=== PATIENT | male | born 1970 | race African-American/Black ===

== ENCOUNTER 2018-04-03 12:58 | Emergency (ER) | payer BC ==
[2018-04-03] MEDS ORDERED: Ondansetron ODT 4 MG TAB ONE (13:30)
[2018-04-03] MEDS ORDERED: Acetaminophen 500 MG TAB ONE (14:09)
== END 2018-04-03 13:38 | disposition home or self-care (01) ==
LOC: MADERS 12:58
DX: B34.9 Viral infection, unspecified (principal)
CPT/HCPCS: 99283; Q0162

== ENCOUNTER 2018-06-27 10:51 | Emergency (ER) | payer BC, OTHER ==
[~2018-06-27 10:51] MED LIST: Iopamidol 370 76% 100 ML VIAL ONE; Sodium Chloride 0.9% 1,000 ML BAG ONE
[2018-06-27] MEDS ORDERED: Morphine 4 MG/ML VIAL ONE (11:46)
[2018-06-27 11:48] LABS: #Basophils 0.1 thou/uL (0.0-0.2); #Eosinphils 0.1 thou/uL (0.0-0.7); #Lymphocytes 1.3 thou/uL (1.20-3.40); #Monocytes 0.3 thou/uL (0.11-0.59); #Neutrophils 4.5 thou/uL (1.40-6.50); %Basophils 1.3 % (0.0-1.0); %Eosinophils 1.4 % (0.0-10.0); %Lymphocytes 21.2 % (21.0-51.0); %Monocytes 5.1 % (0.0-10.0); %Neutrophils 71.1 % (42.0-75.0); Hemoglobin 13.4 g/dL (14.0-18.0); Mean Corpuscular HGB CONC 32.4 g/dL (32.0-36.0); Mean Corpuscular Hemoglobin 29.2 pg (27.0-31.0); Mean Corpuscular Volume 90.1 fL (78.0-98.0); Mean Platelet Volume 6.5 fL (7.4-10.4); Platelet Count 226 thou/uL (130-400); RBC Distribution Width 13.3 % (11.5-14.5); Red Blood Cell (RBC) Count 4.57 mill/uL (4.70-6.10); White Blood Cell (WBC) Count 6.3 thou/uL (4.8-10.8)
[2018-06-27 11:57] LABS: PTT 26.4 SEC (22.9-36.1); Prothrombin Time 13.2 SEC (12.0-14.7)
[2018-06-27 12:07] LABS: ALT (SGPT) 23 U/L (8-55); AST (SGOT) 22 U/L (5-34); Albumin 3.6 g/dL (3.5-5.0); Alkaline Phosphatase 60 U/L (40-150); Anion Gap 10 mmol/L (10-20); BUN (Urea Nitrogen) 13 mg/dL (8.9-20.6); Bilirubin, Total 0.5 mg/dL (0.2-1.2); Calc. Creatinine Clearance 0 mL/min (70-130); Calcium 8.8 mg/dL (7.8-10.44); Carbon Dioxide 25 mmol/L (22-29); Chloride 111 mmol/L (98-107); Estimated GFR-MDRD 85; Globulin 2.9 g/dL (2.4-3.5); Glucose 97 mg/dL (70-105); Lipase 80 U/L (8-78); Potassium 3.4 mmol/L (3.5-5.1); Protein, Total 6.5 g/dL (6.0-8.3); Sodium 143 mmol/L (136-145)
[2018-06-27 12:28] LABS: Bilirubin Negative (Negative); Blood, Urine Negative (Negative); Clarity Clear (Clear); Glucose, Urine (Dipstick) Negative (Negative); Leukocyte Negative (Negative); Nitrite Negative (Negative); Protein, Urine (Dipstick) Negative (Neg-Trace); Urobilinogen 0.2 mg/dL (0.2-1.0)
--- NOTE | 2018-06-27 13:20 | CT ---
CT CHEST AND ABDOMEN AND PELVIS WITH IV CONTRAST: CT THORACIC AND LUMBAR SPINE: INDICATIONS: Trauma to right chest and abdomen. Injury with pain. TECHNIQUE: Multiple axial tomograms obtained through the chest, abdomen, and pelvis, with IV enhancement, follow ing trauma protocol. FINDINGS: CHEST: The lungs are well aerated. There is no pneumothorax. Mild ground glass opacity in the post erior right mid and lower lung could represent mild atelectasis. No evidence of rib fracture identified. The bony thorax appears intact. The thoracic vertebrae main tain normal height. The sternum appears intact. ABDOMEN AND PELVIS: The liver, spleen, and pancreas are unremarkable. The kidneys are unremarkable. No evidence of solid organ injury identified. Bowel loops are unremarkable. The aorta is unremark able. No free blood or fluid in the abdomen or pelvis. There is a 1.5 cm cystic lesion in the posterior left renal cortex, which is an incidental finding. The bony pelvis appears intact. There is a left hip prosthesis. Prominent degenerative changes of t he right hip. THORACIC AND LUMBAR SPINE: Thoracic and lumbar vertebrae maintain normal height and alignment. No c ompression deformity. No evidence of acute vertebral body fracture. IMPRESSION: 1. No evidence of acute chest injury. 2. No rib fracture identified. 3. Possible mild atelectasis in the posterior right lung. 4. No evidence of acute intraabdominal injury. POS: [facility]
== END 2018-06-27 13:12 | disposition home or self-care (01) ==
LOC: MADERS 10:51
DX: S20.211A Contusion of right front wall of thorax, initial encounter (principal); F32.9 Major depressive disorder, single episode, unspecified; W22.8XXA Striking against or struck by other objects, initial encounter
CPT/HCPCS: 71260; 74177; 80053; 81003; 83690; 85025; 85610; 85730; 96361; 96374; J2270; J7050

== ENCOUNTER 2018-07-01 12:03 | Emergency (ER) | payer OTHER, BC ==
[2018-07-01] MEDS ORDERED: Ketorolac Tromethamine 60 MG/2 ML VIAL ONE (12:37)
[2018-07-01] MEDS ORDERED: HYDROcodone/Acetaminophen 10/325 mg Tablet ONE (12:37)
--- NOTE | 2018-07-01 14:15 | RAD ---
PORTABLE CHEST 1 VIEW: DATE: 07/01/18. TIME: 12:19 p.m. HISTORY: Chest pain. FINDINGS: The heart size is normal. The lungs are expanded without focal areas of consolidation, pneumothorace s, or pleural effusions. IMPRESSION: No radiographic evidence of acute cardiopulmonary process. POS: [facility]
--- NOTE | 2018-07-01 14:46 | RAD ---
RIGHT HIP 1 VIEW: HISTORY: Injury. Right hip pain. FINDINGS: Extensive degenerative changes are seen. A single image is not adequate to exclude fracture. A late ral view should also be performed. POS: [facility]
== END 2018-07-01 12:55 | disposition home or self-care (01) ==
LOC: MADERS 12:03
DX: S70.01XA Contusion of right hip, initial encounter (principal); S20.211A Contusion of right front wall of thorax, initial encounter; W22.8XXA Striking against or struck by other objects, initial encounter
CPT/HCPCS: 71045; 96372; J1885